=== PATIENT | male | born 1940 | race Caucasian/White ===

== ENCOUNTER → 2018-04-08 | Outpatient (CLI) | payer MEDICARE, OTHER ==
[~2018-04-08] MED LIST: AMLO5; AMLO5 PO; CELE200; ESOM20; FLUO10; FLUO20; HYDR-86 PO; LISHYD2012; METF500 PO; OXYC40ER; TRAZ50; Zestoretic PO
== END ==
LOC: PLD 07:31 → LAB SHORT 07:31
DX: L30.9 Dermatitis, unspecified (principal)
CPT/HCPCS: 88312

== ENCOUNTER 2020-07-19 05:47 | Day surgery (SDC) | payer MEDICARE, OTHER ==
[~2020-07-19] VITALS: Ht 180.3 cm; Wt 105.0 kg
[2020-07-19] MEDS ORDERED: ROSU5 PO (06:28)
[2020-07-19] MEDS ORDERED: Aspir 8181 MG PO (06:29)
[2020-07-19] MEDS ORDERED: Norco 5-325 Ta1 EACH PO (06:29)
[2020-07-19] MEDS ORDERED: HYDCHL25 PO (06:30)
[2020-07-19] MEDS ORDERED: GABA300 PO (06:31)
[2020-07-19] MEDS ORDERED: Lisinopril2.5 MG PO (06:31)
--- NOTE | 2020-07-19 08:42 | NUR ---
4809 DR. GORE AT THE BEDSIDE, GATHERED TO THE BEDSIDE ALSO. SPOKE WITH THE PATIENT AND ABOUT CATH FINDINGS AND PLAN OF CARE. ALL QUESTIONS ANSWERED.
--- NOTE | 2020-07-19 09:16 | NUR ---
0915 BREAKFAST TRAY SERVED AND PAIENT FEEDING SELF WITH LEFT ARM.
--- NOTE | 2020-07-19 10:19 | NUR ---
1019 ALL AIR REMOVED FROM THE TR BAND. NO BLEEDING NOTED.
--- NOTE | 2020-07-19 10:35 | NUR ---
1030 PATIENT TR BAND REMOVED, SITE CLEANED AND DRIED. CLOTHDOT PLACED AND WHITE BOARD REPLACED TO THE RIGHT ARM. REVIEWED ALL DISCHARGE INSTRUCTIONS WITH AND PATIENT. THEY UNDERSTAND THEY WILL BE CONTACTED BY THE SURGEON'S OFFICE IN [place] WITHIN A WEEK. PATEINT DRESSED WITH 'S ASSISTANCE AND ALL BELONGINGS GATHERED. VVS. PIV CATHETER REMOVED AND TIP INTACT. PRESSURE DRESSING PLACED TO THE LEFT AC. NO FURTHER QUESTIONS AT THIS TIME FROM THE PATIENT NOR THE .
== END 2020-07-19 10:30 | disposition home or self-care (01) ==
LOC: MHTC 05:47
PROC: B201YZZ Plain Radiography of Multiple Coronary Arteries using Other Contrast (ICD-10-PCS; principal; 2020-07-19)
PROC: 4A023N7 Measurement of Cardiac Sampling and Pressure, Left Heart, Percutaneous Approach (ICD-10-PCS; principal; 2020-07-19)
DX: I25.118 Atherosclerotic heart disease of native coronary artery with other forms of angina pectoris (principal); E66.9 Obesity, unspecified; E11.22 Type 2 diabetes mellitus with diabetic chronic kidney disease; N18.9 Chronic kidney disease, unspecified; D63.1 Anemia in chronic kidney disease; I45.10 Unspecified right bundle-branch block; E29.1 Testicular hypofunction; M89.49 Other hypertrophic osteoarthropathy, multiple sites; Z87.891 Personal history of nicotine dependence; Z79.84 Long term (current) use of oral hypoglycemic drugs; Z88.8 Allergy status to other drugs, medicaments and biological substances; Z79.899 Other long term (current) drug therapy; Z79.82 Long term (current) use of aspirin; Z68.31 Body mass index [BMI] 31.0-31.9, adult
CPT/HCPCS: 85347; 93454; 93571; 99152; 99153; C1769; C1887; C1894; J1644; J2250; J3010; J7030; J7050; Q9967

== ENCOUNTER 2021-04-10 09:27 | Day surgery (SDC) | payer MEDICARE, OTHER ==
[~2021-04-10] VITALS: Ht 182.9 cm; Wt 99.8 kg
[~2021-04-10 09:27] MED LIST changes: +ASPI81CH PO; +Aspir 8181 MG PO; +CARV3.125 PO; +CELE200 PO; +Crestor20 MG PO; +GABA300 PO; +HYDCHL25 PO; +LISI20 PO; +Lisinopril2.5 MG PO; +METFORMIN HCL500 M3 PO; +Nexium40 MG PO; +Norco 5-325 Ta1 EACH PO; +OXYC40ER PO; +OXYCONTIN20 M1 PO; +ROSU5 PO; +TRAZ150T57 PO
--- NOTE | 2021-04-10 10:09 | NUR ---
Pre-Op teaching done. Pt verbalizes understanding.Ambulatory in Day Surgery History, Chart, Medications and Allergies reviewed before start of procedure. Lungs clear T/O to Auscultation. Patient confirms NPO status and agrees with scheduled surgery.
--- NOTE | 2021-04-10 17:36 | NUR ---
ORDERS FOR PT HOME MEDS FOR 40MG OXYCONTIN QID AND 1-2 5/325MG NORCO PUT IN AFTER VERBAL ORDER FROM DR CARUSO. ALLERGY NOTED, PT STATES THAT IS ONLY TO OXYCODONE, NOT OXYCONTIN. DR DOLL, OK TO ORDER HOME MEDICATIONS.
--- NOTE | 2021-04-10 20:51 | NUR ---
SHIFT SUMMARY PATIENT ALERT AND ORIENTED THROUGHOUT SHIFT. HAS CHRONIC PAIN BEFORE SURGERY AND TAKES OPIOIDS DAILY. PATIENT IS TAKING HOME REGIMEN OF PAIN MEDS ORDERED ON EMAR BY DR CARUSO. EPISODE OF LOW BLOOD PRESSURE WHEN FIRST STANDING WITH PHYSICAL THERAPY. RESTARTED FLUID AND RECLINED PATIENT IN CHAIR. DENIES SYMPTOMS OF LOW BP AND HAS STABILIZED. TOLERATING REGULAR DIET. RIGHT ANT MERI WITH AQUACEL AND POLAR PACK IN PLACE. REPORT GIVEN TO ORIENTOR RN.
--- NOTE | 2021-04-11 03:57 | NUR ---
SHIFT SUMMARY A/OX4, AMBULATING WITH 1 ASSIST FWW AND GB. AQUACEL DRESSING TO R. HIP C/D/I, POLAR PACK IN PLACE. MEDICATED FOR PAIN PER HOME MEDICATION REGIMEN. BLADDER SCAN SHOWED >750, 700CC OUTPUT AFTER STRAIGHT CATH. VSS, NO ACUTE CHANGES AT THIS TIME. BED IN LOWEST POSITION WITH CALL LIGHT IN REACH. WILL CONTINUE TO MONITOR AND REPORT TO ONCOMING RN.
[2021-04-11 04:38] LABS: BASOPHILS ABSOLUTE AUTO 0.01 K/mm3 (0.00-0.23); BASOPHILS PERCENT AUTO 0 % (0-2); EOSINOPHILS PERCENT AUTO 0 % (0-6); Hematocrit 23.2 % (37.0-53.0); Hemoglobin 7.5 g/dL (13.5-17.5); IMMATURE GRAN ABSOLUTE AUTO 0.05 K/mm3 (0.00-0.10); IMMATURE GRAN PERCENT AUTO 1 % (0-1); LYMPHOCYTES ABSOLUTE AUTO 0.97 K/mm3 (0.84-5.20); LYMPHOCYTES PERCENT AUTO 10 % (21-46); MONOCYTES ABSOLUTE AUTO 0.63 K/mm3 (0.16-1.47); MONOCYTES PERCENT AUTO 6 % (4-13); Mean Corpuscular HGB 29.1 pg (26.0-34.0); Mean Corpuscular HGB Conc 32.3 g/dL (31.5-36.5); Mean Corpuscular Volume 90 fL (80-100); Mean Platelet Volume 9.8 fL (9.1-12.4); NEUTROPHILS ABSOLUTE AUTO 8.49 K/mm3 (1.96-9.15); NEUTROPHILS PERCENT AUTO 84 % (41-73); NRBC ABSOLUTE 0.02 K/mm3 (0.00-0.02); NRBC Auto 0.2 /100 WBC (0.0-0.2); Platelet Count 153 K/mm3 (150-400); RDW Coefficient Variation 13.2 % (11.7-14.2); RDW Standard Deviation 43.8 fL (35.1-46.3); Red Blood Cell Count 2.58 M/mm3 (4.30-5.90); White Blood Cell Count 10.15 K/mm3 (4.00-11.30)
--- NOTE | 2021-04-11 06:40 | NUR ---
TO BED PER PATIENT REQUEST.
--- NOTE | 2021-04-11 14:40 | NUR ---
URINARY RETENTION BLADDER SCAN SHOWED 445ML POST VOID RESIDUAL. PT DENIED FEELING THE NEED TO VOID WITH 445ML IN HIS BLADDER. PT REPORTED THIS IS AN ONGOING PROBLEM AND HIS PCP DOCTOR WANTED TO START FLOMAX BUT HE HAD NOT CHECKED TO SEE IF THE PRESCRIPTION WAS READY PRIOR TO COMING INTO THE HOSPITAL. PT VERBALIZED THAT HE WANTED TO GO HOME AND THAT HE FELT HE HAD ADEQUATELY EMPTIED HIS BLADDER. PT VERBALIZED FRUSTRATION THAT RECOMMENDED WAS TO WAIT UNTIL HE IS BETTER ABLE TO EMPTY HIS BLADDER BEFORE DISCHARGING. PT REPORTED TO [facility] STUDENT NURSE THAT HE WOULD LEAVE AMA IF NOT PROVIDED WITH DISCHARGE INFORMATION. RIA BATEMAN NOTIFIED OF PT'S DIFFICULTY VOIDING, AND THAT THIS HAS BEEN AN ISSUE. Norma SCOTT RECOMMENDED THAT PT COULD GO HOME SINCE HE WAS ABLE TO EMPTY SOME URINE, BUT TO FOLLOW UP WITH HIS PCP DOCTOR REGARDING DIFFICULTY VOIDING.
--- NOTE | 2021-04-11 15:24 | NUR ---
DISCHARGE PT AND SPOUSE PROVIDED WITH WRITTEN AND VERBAL DISCHARGE INSTRUCTIONS. PT EDUCATED TO TAKE ASPIRIN 81MG BID TO PREVENT BLOOD CLOTS. PT WAS ALSO EDUCATED TO FOLLOW-UP WITH HIS PRIMARY CARE DOCTOR REGARDING URINARY RETENTION AND TO NOTIFY HIS DOCTOR IF HE IS UNABLE TO VOID OR HAS A FEELING OF BLADDER FULLNESS AND IS UNABLE TO EMPTY HIS BLADDER. DRESSINGS PROVIDED. PAIN MANAGED AT TIME OF DISCHARGE. PT EDUCATED TO BE CAUTIOUS OF TAKING PAIN MEDICATION AND EDUCATED TO TRY TO REDUCE PAIN MEDICATION. PT APPEARED UNINTERESTED IN EDUCATION REGARDING PAIN MEDICATION. PT EDUCATED TO TAKE HIS BP BEFORE TAKING HIS BLOOD PRESSURE MEDICATIONS AND TO MONITOR HIS BLOOD PRESSURE WHEN TAKING NARCOTICS SINCE HE HAD ORTHOSTATIC HYPOTENSION THIS MORNING. ORTHOSTATIC HYPOTENSION APPEARS TO HAVE RESOLVED THIS AFTERNOON BP 154/74 PRIOR TO DISCHARE AND PT DENIED DIZZINESS UPON STANDING. VSS. PT ASSISTED OUT IN W/C BY [facility]INA KEYES NURSE
--- NOTE | 2021-04-11 15:31 | NUR ---
DISCHARGE PT A&0 X4. PT'S SPOUSE WAS PRESENT AT BEDSIDE AT TIME OF DISCHARGE INSTRUCTION. RN PEDRO GAVE VERBAL DISCHARGE DIRECTION AND PROVIDED WRITTEN INFORMATION WELL. PT AND PT'S SPOUSE BOTH VERBALIZED UNDERSTANDING AND DENIED FURTHER QUESTION. PT WAS ABLE TO VOID POST OP, PT HAS NO SIGNS OF DISTENTION AND DENIES DISCOMFORT. PT IS SUFFERING FROM CHRONIC URINARY RETENTION. PT WAS INSTRUCTED TO FOLLOW UP WITH HIS PCP. PT WAS ESCOURTED OUT TO [facility] VIA WC BY [employer] [facility]. PT VSS.
== END 2021-04-11 15:32 | disposition home or self-care (01) ==
LOC: ORSCMMR 09:27 → SURS 14:52 → ORSCMMR 04-11 15:32 → SURS 04-11 15:32
PROVIDERS: Orthopaedic Surgery
PROC: 0SR90JA Replacement of Right Hip Joint with Synthetic Substitute, Uncemented, Open Approach (ICD-10-PCS; principal; 2021-04-10 11:00)
DX: M16.11 Unilateral primary osteoarthritis, right hip (principal); E11.9 Type 2 diabetes mellitus without complications; I10 Essential (primary) hypertension; I25.10 Atherosclerotic heart disease of native coronary artery without angina pectoris; Z79.82 Long term (current) use of aspirin; Z79.899 Other long term (current) drug therapy; Z79.84 Long term (current) use of oral hypoglycemic drugs; Z87.891 Personal history of nicotine dependence
CPT/HCPCS: 36415; 72170; 82947; 83735; 85025; 97110; 97116; 97162; 97530; A9270; C1776; J0171; J0690; J0735; J1100; J1170; J1885; J2250; J2370; J2405; J2704; J2795; J3010; J7120

== ENCOUNTER → 2021-05-07 | Outpatient (CLI) | payer MEDICARE, OTHER | END | disposition home or self-care (01) | LOC: LAB SHORT 10:20 → LAB 10:20 | DX: L98.9 Disorder of the skin and subcutaneous tissue, unspecified (principal) | CPT/HCPCS: 87070; 87075; 87077; 87186; 87205 ==

== ENCOUNTER 2021-06-11 00:58 | Day surgery (SDC) | payer MEDICARE, OTHER | END 2021-06-11 22:54 | disposition home or self-care (01) | LOC: WOUND 00:58 | DX: L03.317 Cellulitis of buttock (principal); Z88.8 Allergy status to other drugs, medicaments and biological substances | CPT/HCPCS: G0463 ==

== ENCOUNTER 2021-09-18 05:55 | Inpatient (IN) | payer MEDICARE, OTHER ==
[~2021-09-18] VITALS: Ht 182.9 cm; Wt 101.1 kg
[2021-09-19 05:02] LABS: BASOPHILS ABSOLUTE AUTO 0.02 K/mm3 (0.00-0.23); BASOPHILS PERCENT AUTO 0 % (0-2); EOSINOPHILS ABSOLUTE AUTO 0.01 K/mm3 (0.00-0.68); EOSINOPHILS PERCENT AUTO 0 % (0-6); Hemoglobin 8.5 g/dL (13.5-17.5); IMMATURE GRAN ABSOLUTE AUTO 0.05 K/mm3 (0.00-0.10); IMMATURE GRAN PERCENT AUTO 0 % (0-1); LYMPHOCYTES ABSOLUTE AUTO 1.17 K/mm3 (0.84-5.20); LYMPHOCYTES PERCENT AUTO 9 % (21-46); MONOCYTES ABSOLUTE AUTO 1.04 K/mm3 (0.16-1.47); MONOCYTES PERCENT AUTO 8 % (4-13); Mean Corpuscular HGB Conc 32.7 g/dL (31.5-36.5); Mean Corpuscular Volume 86 fL (80-100); Mean Platelet Volume 9.7 fL (9.1-12.4); NEUTROPHILS ABSOLUTE AUTO 10.22 K/mm3 (1.96-9.15); NEUTROPHILS PERCENT AUTO 82 % (41-73); Platelet Count 180 K/mm3 (150-400); RDW Standard Deviation 53.2 fL (35.1-46.3); Red Blood Cell Count 3.04 M/mm3 (4.30-5.90); White Blood Cell Count 12.51 K/mm3 (4.00-11.30)
[2021-09-19 05:18] LABS: Anion Gap 4 mmol/L (6-16); Blood Urea Nitrogen 32 mg/dL (8-24); Bun/Creatinine Ratio 29.6 (12.0-20.0); CO2, Blood 26 mmol/L (21-32); Calcium, Blood 8.7 mg/dL (8.5-10.1); Chloride, Blood 105 mmol/L (98-108); Creatinine, Blood 1.08 mg/dL (0.60-1.20); Glomerular Filtration Rate >60 (60-); Glucose, Blood 169 mg/dL (70-99); Sodium, Blood 135 mmol/L (136-145)
[2021-09-19] MEDS ORDERED: Percocet 5-3251 EACH PO (10:59)
== END 2021-09-19 11:07 | disposition home or self-care (01) | DRG 470 ==
LOC: SURS 05:55 → PRE IP 07:30 → SURS 10:36
PROVIDERS: ADMIT Orthopaedic Surgery
PROC: 0SUB09Z Supplement Left Hip Joint with Liner, Open Approach (ICD-10-PCS; 2021-09-18)
PROC: 0SRB04Z Replacement of Left Hip Joint with Ceramic on Polyethylene Synthetic Substitute, Open Approach (ICD-10-PCS; principal; 2021-09-18 07:30)
DX: M16.12 Unilateral primary osteoarthritis, left hip (principal); M54.50 Low back pain, unspecified; E11.9 Type 2 diabetes mellitus without complications; K21.9 Gastro-esophageal reflux disease without esophagitis; E78.5 Hyperlipidemia, unspecified; I10 Essential (primary) hypertension; Z96.641 Presence of right artificial hip joint; R33.8 Other retention of urine; Z90.49 Acquired absence of other specified parts of digestive tract; Z87.891 Personal history of nicotine dependence; Z88.6 Allergy status to analgesic agent; Z79.82 Long term (current) use of aspirin; Z79.84 Long term (current) use of oral hypoglycemic drugs; Z79.899 Other long term (current) drug therapy
CPT/HCPCS: 36415; 51701; 72170; 80048; 82947; 85025; 97110; 97116; 97162; A9270; C1776; J0171; J0690; J0735; J1100; J1170; J1815; J1885; J2370; J2405; J2704; J2795; J3010; J7120

== ENCOUNTER 2023-09-13 08:57 | Emergency (ER) | payer MEDICARE, OTHER ==
[~2023-09-13] VITALS: Ht 182.9 cm; Wt 99.8 kg
[~2023-09-13 08:57] MED LIST changes: +Percocet 5-3251 EACH PO
[2023-09-13] MEDS ORDERED: METOPROLOL SUCC25 MG PO (11:04)
[2023-09-13 11:19] VITALS: BP 146/67
== END 2023-09-13 11:20 | disposition home or self-care (01) ==
LOC: ER 08:57
DX: M79.605 Pain in left leg (principal); Z88.5 Allergy status to narcotic agent; Z79.899 Other long term (current) drug therapy; Z79.891 Long term (current) use of opiate analgesic; Z79.82 Long term (current) use of aspirin; Z87.891 Personal history of nicotine dependence
CPT/HCPCS: 73502; 73560-LT; 99284-25; A9270

== ENCOUNTER 2024-01-01 08:39 | Day surgery (SDC) | payer MEDICARE, OTHER ==
[~2024-01-01] VITALS: Ht 182.9 cm; Wt 98.4 kg
[~2024-01-01 08:39] MED LIST changes: +BUPROPION HCL200 M1; -LISI20 PO; +Lactated Ringer's 1,000 ML ONE; +METHYL B12-MET1 EACH; +METOPROLOL SUCC25 MG PO; +OMEGA-3 FISH O1 EA20; -OXYC40ER PO; +OxyCONTIN PO; +Zestril30 MG PO; +[UNRECOGNIZED DRUG - OTHER]
[2024-01-01] MEDS ORDERED: CeFAZolin Sodium 2,000 MG VIAL ONE (08:51)
[2024-01-01] MEDS ORDERED: NS 50 ML IV ONE (08:52)
[2024-01-01] MEDS ORDERED: Lactated Ringer's 1,000 ML IV ONE ×2 (09:09→09:50)
[2024-01-01] MEDS ORDERED: FentaNYL Citrate 50 MCG/ML 2 ML Injection ONE (09:20)
[2024-01-01] MEDS ORDERED: propofoL 20 ML IV ONE (09:20)
[2024-01-01] MEDS ORDERED: Lidocaine 2% 5 ML SDV ONE (10:30)
[2024-01-01] MEDS ORDERED: ePHEDrine Sulfate 50 MG/ML 1ML Injection ONE (10:41)
[2024-01-01] MEDS ORDERED: Dexamethasone Sod Phos 10 MG/ML 1ML VIAL ONE (10:41)
[2024-01-01] MEDS ORDERED: Ondansetron HCl 2 MG / ML 2ML Vial ONE (10:41)
[2024-01-01 12:09] VITALS: BP 140/71
== END 2024-01-01 12:01 | disposition home or self-care (01) ==
LOC: ORSCSDS 08:39
PROVIDERS: Orthopaedic Surgery
PROC: 01N54ZZ Release Median Nerve, Percutaneous Endoscopic Approach (ICD-10-PCS; principal; 2024-01-01 10:00)
DX: G56.03 Carpal tunnel syndrome, bilateral upper limbs (principal); I10 Essential (primary) hypertension; E11.9 Type 2 diabetes mellitus without complications; K31.9 Disease of stomach and duodenum, unspecified; E78.5 Hyperlipidemia, unspecified; Z87.891 Personal history of nicotine dependence; E66.9 Obesity, unspecified; Z68.29 Body mass index [BMI] 29.0-29.9, adult; Z79.84 Long term (current) use of oral hypoglycemic drugs; Z79.82 Long term (current) use of aspirin; Z79.899 Other long term (current) drug therapy
CPT/HCPCS: 82947; J0690; J1100; J2405; J2704; J3010; J7120

== ENCOUNTER → 2024-05-17 | Outpatient (CLI) | payer MEDICARE ==
[~2024-05-17] MED LIST changes: +B6; -Lactated Ringer's 1,000 ML ONE
== END ==
LOC: PLD 07:25 → LAB SHORT 07:25
DX: D48.5 Neoplasm of uncertain behavior of skin (principal)
CPT/HCPCS: 88312

== ENCOUNTER → 2024-11-01 | Outpatient (CLI) | payer MEDICARE, OTHER ==
[2024-11-01 12:39] LABS: BASOPHILS ABSOLUTE AUTO 0.05 K/mm3 (0.00-0.23); BASOPHILS PERCENT AUTO 1 % (0-2); EOSINOPHILS ABSOLUTE AUTO 0.27 K/mm3 (0.00-0.68); EOSINOPHILS PERCENT AUTO 3 % (0-6); Hematocrit 33.7 % (37.0-53.0); IMMATURE GRAN ABSOLUTE AUTO 0.04 K/mm3 (0.00-0.10); IMMATURE GRAN PERCENT AUTO 0 % (0-1); LYMPHOCYTES ABSOLUTE AUTO 2.17 K/mm3 (0.84-5.20); LYMPHOCYTES PERCENT AUTO 21 % (21-46); MONOCYTES ABSOLUTE AUTO 0.95 K/mm3 (0.16-1.47); MONOCYTES PERCENT AUTO 9 % (4-13); Mean Corpuscular HGB 30.2 pg (26.0-34.0); Mean Corpuscular HGB Conc 32.6 g/dL (31.5-36.5); Mean Corpuscular Volume 93 fL (80-100); Mean Platelet Volume 9.1 fL (9.1-12.4); NEUTROPHILS ABSOLUTE AUTO 6.84 K/mm3 (1.96-9.15); NEUTROPHILS PERCENT AUTO 66 % (41-73); Platelet Count 208 K/mm3 (150-400); RDW Standard Deviation 44.1 fL (35.1-46.3); Red Blood Cell Count 3.64 M/mm3 (4.30-5.90); White Blood Cell Count 10.32 K/mm3 (4.00-11.30)
[2024-11-01 12:54] LABS: Albumin, Blood 3.9 g/dL (3.4-5.0); Bilirubin, Total 0.4 mg/dL (0.1-1.0); Bun/Creatinine Ratio 21.6 (12.0-20.0); Calcium, Blood 9.6 mg/dL (8.5-10.1); Creatinine, Blood 1.39 mg/dL (0.60-1.20); Globulin, Blood 3.9 g/dL (2.2-4.0); Potassium, Blood 4.7 mmol/L (3.5-5.5); Total Protein, Blood 7.8 g/dL (6.4-8.2)
== END | disposition home or self-care (01) ==
LOC: LAB 12:35 → LAB SHORT 12:35
PROVIDERS: Physician Assistant Medical
DX: R06.09 Other forms of dyspnea (principal)
CPT/HCPCS: 80053; 83880; 84484; 85025

== ENCOUNTER → 2025-04-25 | Outpatient (CLI) | payer MEDICARE, OTHER ==
[2025-04-25 13:28] LABS: BASOPHILS ABSOLUTE AUTO 0.02 K/mm3 (0.00-0.23); BASOPHILS PERCENT AUTO 0 % (0-2); EOSINOPHILS ABSOLUTE AUTO 0.17 K/mm3 (0.00-0.68); EOSINOPHILS PERCENT AUTO 4 % (0-6); Hematocrit 33.9 % (37.0-53.0); Hemoglobin 11.1 g/dL (13.5-17.5); IMMATURE GRAN ABSOLUTE AUTO 0.01 K/mm3 (0.00-0.10); IMMATURE GRAN PERCENT AUTO 0 % (0-1); LYMPHOCYTES ABSOLUTE AUTO 1.65 K/mm3 (0.84-5.20); LYMPHOCYTES PERCENT AUTO 35 % (21-46); MONOCYTES ABSOLUTE AUTO 0.42 K/mm3 (0.16-1.47); MONOCYTES PERCENT AUTO 9 % (4-13); Mean Corpuscular HGB 29.9 pg (26.0-34.0); Mean Corpuscular HGB Conc 32.7 g/dL (31.5-36.5); Mean Corpuscular Volume 91 fL (80-100); Mean Platelet Volume 9.3 fL (9.1-12.4); NEUTROPHILS ABSOLUTE AUTO 2.43 K/mm3 (1.96-9.15); NEUTROPHILS PERCENT AUTO 52 % (41-73); Platelet Count 183 K/mm3 (150-400); RDW Coefficient Variation 13.3 % (11.7-14.2); RDW Standard Deviation 45.4 fL (35.1-46.3); Red Blood Cell Count 3.71 M/mm3 (4.30-5.90)
[2025-04-25 13:54] LABS: Albumin, Blood 3.8 g/dL (3.4-5.0); Bilirubin, Total 0.4 mg/dL (0.1-1.0); Bun/Creatinine Ratio 16.8 (12.0-20.0); Calcium, Blood 9.5 mg/dL (8.5-10.1); Creatinine, Blood 1.19 mg/dL (0.60-1.20); Globulin, Blood 3.9 g/dL (2.2-4.0); Potassium, Blood 4.8 mmol/L (3.5-5.5); Total Protein, Blood 7.7 g/dL (6.4-8.2)
== END ==
LOC: LAB 13:24 → LAB SHORT 13:24
PROVIDERS: Family Medicine
DX: R42 Dizziness and giddiness (principal); R07.9 Chest pain, unspecified
CPT/HCPCS: 80053; 84484; 85025